=== PATIENT | male | born 1990 | race African-American/Black ===

== ENCOUNTER → 2018-01-30 | Outpatient (CLI) | payer OTHER ==
--- NOTE | 2018-01-30 15:06 | RAD ---
History: Injury to right hand 5th digit Study: PA oblique and lateral views of the right and Comparison: None Findings: There is an acute oblique fracture through the proximal phalanx of the 5th digit with moder ate to severe dorsal and medial angulation. Joint spaces are not involved. Impression: Angulated fracture through the diaphysis of the proximal phalanx of the 5th finger Reported By:
== END | disposition home or self-care (01) ==
LOC: RAD 14:41
DX: S69.81XA Other specified injuries of right wrist, hand and finger(s), initial encounter (principal); S62.616A Displaced fracture of proximal phalanx of right little finger, initial encounter for closed fracture; X58.XXXA Exposure to other specified factors, initial encounter; Y93.89 Activity, other specified; Y92.148 Other place in prison as the place of occurrence of the external cause; M79.89 Other specified soft tissue disorders
CPT/HCPCS: 73130